=== PATIENT | female | born 1995 | race Caucasian/White ===

== ENCOUNTER 2017-12-25 20:17 | Emergency (ER) | payer BC, OTHER ==
[~2017-12-25] VITALS: Ht 165.1 cm; Wt 68.2 kg
[2017-12-25 20:31] VITALS: Ht 165.1 cm; Wt 68.2 kg
[2017-12-25] MEDS ORDERED: SODIUM CHLORIDE 0.9% 1000ML 1,000 ML IV STA (21:17)
[2017-12-25] MEDS ORDERED: OPTIRAY 320 IV PRN (21:30)
[2017-12-25 21:49] LABS: BASO % 0.2 %; BASO ABS # 0.02 K/uL (0-0.2); EOS % 0.5 %; EOS ABS # 0.04 K/uL (0-0.5); HEMATOCRIT 35.3 % (37-47); HEMOGLOBIN 11.7 g/dL (12.0-16.0); IG# 0.01 K/uL (0.00-0.02); LYMPH % 19.4 %; LYMPH ABS # 1.65 K/uL (1.2-3.4); MEAN CELL VOLUME 75.9 fL (80-100); MEAN CORPUSCULAR HEMOGLOBIN 25.2 pg (25-34); MEAN CORPUSCULAR HGB CONC 33.1 g/dl (32-36); MEAN PLATELET VOLUME 9.2 fL (7.4-10.4); MONO % 6.9 %; MONO ABS # 0.59 K/uL (0.11-0.59); NEUT % 72.9 %; PLATELET COUNT 415 K/uL (130-400); RED CELL DISTRIBUTION WIDTH CV 16.2 % (11.5-14.5); WHITE BLOOD COUNT 8.51 K/uL (4.8-10.8)
[2017-12-25 22:18] LABS: ALBUMIN 4.3 gm/dl (3.4-5.0); ALT/SGPT 15 U/L (12-78); BLOOD UREA NITROGEN 6 mg/dl (7-18); CALCIUM 9.2 mg/dl (8.5-10.1); CARBON DIOXIDE 22 mmol/L (21-32); CREATININE 0.79 mg/dl (0.60-1.20); GLUCOSE 82 mg/dl (70-99); LIPASE 93 U/L (73-393); POTASSIUM 3.3 mmol/L (3.5-5.1); SODIUM 136 mmol/L (136-145)
[2017-12-25 22:21] LABS: ALKALINE PHOSPHATASE 50 U/L (45-117); AST/SGOT 11 U/L (15-37); TOTAL PROTEIN 8.2 gm/dl (6.4-8.2)
--- NOTE | 2017-12-25 22:41 | DIAGNOSTIC IMAGING REPORT ---
APPENDICEAL ULTRASOUND CLINICAL HISTORY: Right lower quadrant abdominal pain COMPARISON STUDY: No previous studies for comparison. FINDINGS: Ultrasonographic evaluation the right lower quadrant was performed. The appendix was not visualized. There are no abnormal fluid collections. IMPRESSION: Nonvisualization the appendix. The study is therefore nondiagnostic in regards to acute appendicitis. Electronically signed by: Dinh Jose M.D. 12/25/2017 10:39 PM Dictated Date/Time: 12/25/2017 10:39 PM
--- NOTE | 2017-12-25 22:44 | DIAGNOSTIC IMAGING REPORT ---
EXAMINATION: PELVIC ULTRASOUND (transabdominal only) CLINICAL HISTORY: RLQ pain, r/o ovarian torsion COMPARISON STUDY: FINDINGS: The uterus measured 72 x 31 x 46 mm. The endometrial stripe measured 10 mm.. The right ovary measured 35 x 25 x 25 mm. The left ovary measured 41 x 25 x 32 mm. There is an 18 mm follicle.. There is no ultrasonographic evidence of ovarian torsion. It should be noted that ovarian torsion can be present with normal Doppler ultrasonographic findings. There was no evidence of pathologic free pelvic fluid. The patient refused endovaginal scanning. IMPRESSION: Unremarkable transabdominal pelvic ultrasound Electronically signed by: Dinh Jose M.D. 12/25/2017 10:42 PM Dictated Date/Time: 12/25/2017 10:40 PM
--- NOTE | 2017-12-25 23:17 | EMERGENCY ROOM VISIT NOTE ---
ED Visit Note First contact with patient: 21:06 CHIEF COMPLAINT: Right lower quadrant abdominal pain HISTORY OF PRESENTING ILLNESS: This is a 22-year-old female who presents to the emergency department with complaint of right lower quadrant abdominal pain that started yesterday. Patient was seen at an urgent care earlier today, and was sent to the ED for further evaluation and concern for possible appendicitis. The patient states for the past 2-3 days she has been having some dysuria and urinary frequency, she thought she might have a UTI and started taking some over -the-counter cranberry tablets and Azo. She states that her abdominal pain started yesterday afternoon, and has gotten progressively worse, has been intermittent, but started to get significantly worse around 3 PM today and has been constant since that time, worse with certain movements, better with rest, currently rates as 6/10. She has not tried any medications for the pain. She states that she just finished her period 2 days ago, she denies chance of . She denies history of ovarian cysts. She has had some chills, but denies fevers, nausea, vomiting, diarrhea or constipation, blood in the stool, abnormal vaginal bleeding or discharge. She has had a normal appetite. She denies any other symptoms of chest pain, shortness of breath, back pain, dizziness or syncope, or rash. She denies any previous abdominal surgeries. REVIEW OF SYSTEMS: A complete 10 point review of systems was reviewed with the patient with pertinent positives and negatives as per history of present illness. All else were negative. PAST MEDICAL HISTORY: No significant past medical or surgical history. She is up-to-date on immunizations. FAMILY HISTORY: Mother and sister with history of ovarian cysts SOCIAL HISTORY: Lives at home. Denies tobacco, alcohol, recreational drug use. ALLERGIES: No known allergies. PHYSICAL EXAM: CONSTITUTIONAL: Pleasant and cooperative. No acute distress. Well-hydrated, well appearing and well nourished. HEENT: Normocephalic, atraumatic. Pupils equal, round and reactive to light, EOMI. TMs normal. Pharynx normal. Moist mucous membranes. NECK: Supple, full active range of motion without discomfort. RESPIRATORY: Clear to auscultation bilaterally with no wheezing, crackles, rhonchi or stridor. Equal expansion bilaterally. CARDIOVASCULAR: Regular rate and rhythm with no murmurs, rubs or gallops. Normal peripheral perfusion. No edema. GASTROINTESTINAL: Soft, tender in the right lower quadrant and suprapubic abdomen to palpation, nondistended. Positive McBurney's point tenderness. Negative Rovsing, negative psoas. No rebound tenderness. No guarding. No palpable masses or HSM. Bowel sounds present in all quadrants. No CVA tenderness. GENITOURINARY: Pelvic exam deferred per patient wishes. MUSCULOSKELETAL: Full range of motion of all joints without discomfort. INTEGUMENTARY: No rash or other significant dermatologic conditions noted. NEUROLOGIC: Alert and oriented X 4 with normal affect. Normal strength and sensation all 4 extremities. No focal neurologic deficits noted. Normal speech. Normal gait observed. ED COURSE AND MEDICAL DECISION MAKING: CC: Patient presenting with complaint of right lower quadrant pain DIFFERENTIAL DIAGNOSIS: Includes, but not limited to Appendicitis, mesenteric adenitis, cholecystitis, cholelithiasis, pancreatitis, UTI, pyelonephritis, gastroenteritis, ectopic , ovarian torsion, ovarian cyst, among others. INTERPRETATION OF LABS: No leukocytosis, mild anemia, no significant electrolyte abnormalities, normal renal function, normal liver enzymes and lipase. UA suspicious for infection, culture pending. Urine negative. IMAGING: EXAMINATION: PELVIC ULTRASOUND (transabdominal only) CLINICAL HISTORY: RLQ pain, r/o ovarian torsion COMPARISON STUDY: FINDINGS: The uterus measured 72 x 31 x 46 mm. The endometrial stripe measured 10 mm.. The right ovary measured 35 x 25 x 25 mm. The left ovary measured 41 x 25 x 32 mm. There is an 18 mm follicle.. There is no ultrasonographic evidence of ovarian torsion. It should be noted that ovarian torsion can be present with normal Doppler ultrasonographic findings. There was no evidence of pathologic free pelvic fluid. The patient refused endovaginal scanning. IMPRESSION: Unremarkable transabdominal pelvic ultrasound ----- APPENDICEAL ULTRASOUND CLINICAL HISTORY: Right lower quadrant abdominal pain COMPARISON STUDY: No previous studies for comparison. FINDINGS: Ultrasonographic evaluation the right lower quadrant was performed. The appendix was not visualized. There are no abnormal fluid collections. IMPRESSION: Nonvisualization the appendix. The study is therefore nondiagnostic in regards to acute appendicitis. ----- Stat read exam requisition with read of preliminary findings for CT of the abdomen and pelvis with IV contrast as follows: Appendix not identified. Mild enhancement of the right urothelium and mild thickening of the bladder. Consider inflammatory process/infection in the proper clinical setting. No obstructing ureteral stone. MEDICATION RECONCILIATION: I attest that I have personally reviewed the patient 's current medication list. INITIAL VITAL SIGNS REVIEW: I reviewed the patient's initial vital signs and interpret them as follows: T: Afebrile; BP: Hypertensive; HR: Tachycardic; RR : Within normal limits; Pulse Ox: Within normal limits on room air. Blood pressure screening: The patient was found to have an elevated blood pressure, which was felt to be situational. SUMMARY: Patient was evaluated at bedside, history and physical exam performed. Patient is alert and oriented, no acute distress, resting, and stretcher. Patient does have moderate tenderness in the right lower quadrant and suprapubic abdomen, positive McBurney's, but no rebound tenderness, negative psoas and Rovsing. I discussed risks and benefits of performing CT imaging with the patient and her mother, given some concern for appendicitis, they did agree to have CT imaging done. Orders were placed at bedside for labs, UA and urine , IV fluids for hydration, abdominal and pelvic ultrasound to evaluate for ovarian pathology and appendicitis, as well as CT abdomen/pelvis to evaluate for appendicitis. Patient was offered something for pain, as she states that she is comfortable and does not wish to have any narcotics. Patient discussed with Dr. Dobson, who agrees with my assessment and plan. Labs and imaging reviewed as above, no evidence for acute appendicitis or ovarian torsion/cyst. CT findings and UA consistent with acute cystitis. Given the patient's recent symptoms of dysuria and urinary frequency, I believe a UTI is the most likely cause for her abdominal pain. IV Rocephin was ordered to treat UTI, Rx for Keflex sent to pharmacy. Patient was given Motrin for pain. Patient reassessed multiple times throughout ED stay, she reports that she is feeling much better. Tachycardia is downtrending appropriately after IV fluids. Patient was updated on all results and plan for discharge, she was encouraged to follow closely with her primary care provider. Patient was also given strict return precautions should her symptoms worsen, she verbalized understanding. Patient was discharged home in stable condition and ambulatory. Current/Historical Medications Scheduled Cephalexin Monohydrate (Keflex), 500 MG PO BID Phenazopyridine HCl (Pyridium), 200 MG PO TID Allergies Coded Allergies: No Known Allergies (Verified , 12/25/17) Vital Signs Date Time Temp Pulse Resp B/P (MAP) Pulse Ox O2 Delivery O2 Flow Rate FiO2 12/26/17 00:15 37.0 88 16 131/92 100 12/25/17 22:37 96 18 148/97 100 Room Air 12/25/17 20:31 37.0 125 18 164/96 99 Room Air Laboratory Results 12/25/17 21:35 Red Blood Count 4.65, Mean Corpuscular Volume 75.9, Mean Corpuscular Hemoglobin 25.2, Mean Corpuscular Hemoglobin Concent 33.1, Mean Platelet Volume 9.2, Neutrophils (%) (Auto) 72.9, Lymphocytes (%) (Auto) 19.4, Monocytes (%) (Auto) 6.9, Eosinophils (%) (Auto) 0.5, Basophils (%) (Auto) 0.2, Neutrophils # (Auto) 6.20, Lymphocytes # (Auto) 1.65, Monocytes # (Auto) 0.59, Eosinophils # (Auto) 0.04, Basophils # (Auto) 0.02 12/25/17 21:35 Test 12/25/17 21:35 White Blood Count 8.51 K/uL (4.8-10.8) Red Blood Count 4.65 M/uL (4.2-5.4) Hemoglobin 11.7 g/dL (12.0-16.0) Hematocrit 35.3 % (37-47) Mean Corpuscular Volume 75.9 fL (80-100) Mean Corpuscular Hemoglobin 25.2 pg (25-34) Mean Corpuscular Hemoglobin Concent 33.1 g/dl (32-36) Platelet Count 415 K/uL (130-400) Mean Platelet Volume 9.2 fL (7.4-10.4) Neutrophils (%) (Auto) 72.9 % Lymphocytes (%) (Auto) 19.4 % Monocytes (%) (Auto) 6.9 % Eosinophils (%) (Auto) 0.5 % Basophils (%) (Auto) 0.2 % Neutrophils # (Auto) 6.20 K/uL (1.4-6.5) Lymphocytes # (Auto) 1.65 K/uL (1.2-3.4) Monocytes # (Auto) 0.59 K/uL (0.11-0.59) Eosinophils # (Auto) 0.04 K/uL (0-0.5) Basophils # (Auto) 0.02 K/uL (0-0.2) RDW Standard Deviation 45.0 fL (36.4-46.3) RDW Coefficient of Variation 16.2 % (11.5-14.5) Immature Granulocyte % (Auto) 0.1 % Immature Granulocyte # (Auto) 0.01 K/uL (0.00-0.02) Urine Color YELLOW Urine Appearance CLOUDY (CLEAR) Urine pH 5.0 (4.5-7.5) Urine Specific [place] 1.010 (1.000-1.030) Urine Protein 1+ (NEG) Urine Glucose (UA) NEG (NEG) Urine Ketones TRACE (NEG) Urine Occult Blood 2+ (NEG) Urine Nitrite NEG (NEG) Urine Bilirubin NEG (NEG) Urine Urobilinogen NEG (NEG) Urine Leukocyte Esterase LARGE (NEG) Urine WBC (Auto) >30 /hpf (0-5) Urine RBC (Auto) 0-4 /hpf (0-4) Urine Hyaline Casts (Auto) 1-5 /lpf (0-5) Urine Epithelial Cells (Auto) >30 /lpf (0-5) Urine Bacteria (Auto) 1+ (NEG) Urine Test NEG (NEG) Anion Gap 10.0 mmol/L (3-11) Est Creatinine Clear Calc Drug Dose 100.5 ml/min Estimated GFR () 123.2 Estimated GFR (Non- 106.3 BUN/Creatinine Ratio 8.1 (10-20) Calcium Level 9.2 mg/dl (8.5-10.1) Total Bilirubin 0.3 mg/dl (0.2-1) Direct Bilirubin < 0.1 mg/dl (0-0.2) Aspartate Amino Transf (AST/SGOT) 11 U/L (15-37) Alanine Aminotransferase (ALT/SGPT) 15 U/L (12-78) Alkaline Phosphatase 50 U/L (45-117) Total Protein 8.2 gm/dl (6.4-8.2) Albumin 4.3 gm/dl (3.4-5.0) Lipase 93 U/L (73-393) Medications Administered Medications (Trade) Dose Ordered Sig/Kenzie Route Start Time Stop Time Status Last Admin Dose Admin Sodium Chloride 1,000 ml @ 999 mls/hr Q1H1M STAT IV 12/25/17 21:17 12/25/17 22:17 DC 12/25/17 21:46 999 MLS/HR Ceftriaxone Sodium (Rocephin Inj) 1 gm NOW STAT IV 12/25/17 23:20 12/25/17 23:21 DC 12/25/17 23:43 1 GM Ibuprofen (Motrin Tab) 600 mg NOW STAT PO 12/25/17 23:37 12/25/17 23:38 DC 12/25/17 23:43 600 MG Departure Information Impression Primary Impression: UTI (urinary tract infection) Dispostion Home / Self-Care Condition GOOD Prescriptions Phenazopyridine HCl (Pyridium) 200 Mg Tab 200 MG PO TID for 3 Days, #9 TAB Prov: Zayda Pace CRNP 12/25/17 Cephalexin Monohydrate (Keflex) 500 Mg Cap 500 MG PO BID for 7 Days, #14 CAP Prov: Zayda Pace CRNP 12/25/17 Referrals No Doctor, Assigned (PCP) Patient Instructions ED UTI Cystitis Female, [facility] Additional Instructions You have been treated in the Emergency Department your abdominal pain. Laboratory results and imaging studies have ruled out any emergent causes for your symptoms which would warrant admission or surgery. You are being treated for a Urinary Tract Infection (UTI). You have been prescribed Keflex to be taken twice a day for 7 days. This is an antibiotic. All antibiotics have the potential to cause diarrhea. Stop this medication and contact a medical provider if you were to develop any significant adverse side effects including: wheezing, shortness of breath, passing out, vomiting, or a diffuse rash. Always take antibiotics as directed and COMPLETE the ENTIRE course regardless of the improvement of your symptoms. You have been prescribed Pyridium to be taken as prescribed. This medicine will help with the urinary symptoms that you have been experiencing. Be aware that Pyridium may turn your urine a red-orange or brown color. This effect is harmless. For pain control, you can use the following [id number] medicines (if >12 yo): - Regular strength (325mg/tab) Tylenol (acetaminophen) 2 tabs every 4-6 hours as needed. Do not exceed 10 tablets in a 24 hour period. Avoid taking more than 3000 mg of Tylenol per day. This includes any other sources of acetaminophen you may take on a regular basis. - Regular strength (200 mg/tab) Advil (ibuprofen) 3 tabs every 6-8 6 hours as needed. Do not exceed a dose of 2400 mg per day. Drink plenty of fluids to stay well hydrated. Please follow-up with your Primary Care Provider in the next week to have your urine rechecked, or sooner if your symptoms are not improving. Return to the emergency department for severe worsening abdominal, low back pain , severe nausea/vomiting, vomiting blood, large amount of blood in your urine, fevers > 101.5, severe dizziness or passing out, or any other concerns. Work Instructions Return To Work: 2 days School Instructions Return To School: 2 days Problem Qualifiers Primary Impression: UTI (urinary tract infection) Urinary tract infection type: acute cystitis Hematuria presence: with hematuria Qualified Codes: N30.01 - Acute cystitis with hematuria
[2017-12-25] MEDS ORDERED: CEFTRIAXONE SOD INJ 1 GM ADDVIAL IV STA (23:20)
[2017-12-25] MEDS ORDERED: IBUPROFEN 600 MG TAB PO STA (23:37)
[2017-12-25] MEDS ORDERED: CEPH500C PO (23:39)
[2017-12-25] MEDS ORDERED: PHEN-876 PO (23:41)
[2017-12-26 00:15] VITALS: BP 131/92; PULSE 88; TEMP 37; O2SAT 100
--- NOTE | 2017-12-26 07:39 | DIAGNOSTIC IMAGING REPORT ---
ABD/PELVIS IV CONTRAST ONLY CLINICAL HISTORY: 22 years-old Female presenting with RLQ pain, eval appendicitis. TECHNIQUE: Multidetector CT of the abdomen and pelvis was performed after the administration of intravenous contrast. IV contrast: 92 mL of Optiray 320. A dose lowering technique was used consistent with the principles of ALARA (as low as reasonably achievable). COMPARISON: Ultrasound from 12/25/2017. CT DOSE (mGy.cm): The estimated cumulative dose is 314.64 mGy.cm. FINDINGS: [employer] topogram: Unremarkable. Lung bases: Lungs and pleural spaces clear. Normal heart size. No pericardial or pleural effusion. Liver: Normal morphology. No liver lesion. Patent hepatic vasculature. Biliary: No intrahepatic or extrahepatic biliary ductal dilatation. Normal gallbladder. Pancreas: Normal. Spleen: Normal. Adrenal glands: Normal. Kidneys and ureters: Normal renal enhancement. No hydronephrosis. No nephrolithiasis. Urothelial thickening evident on the right with urothelial hyperenhancement and trace periureteral fat stranding. The distal ureters are poorly visualized. The left ureter is normal. Bladder: Allowing for underdistention, mild circumferential bladder wall thickening and mucosal hyperenhancement. Pelvic organs: Uterus and ovaries normal. Bowel: Normal appendix. No bowel obstruction. Peritoneal cavity: No free fluid or intraperitoneal gas. Lymph nodes: No enlarged lymph nodes in the abdomen or pelvis. Vasculature: Aorta and IVC patent and normal in caliber. Abdominal wall: Normal. Musculoskeletal: Normal. IMPRESSION: 1. No appendicitis. Normal appendix. 2. Right urothelial hyperenhancement, urothelial thickening, trace periureteral fat stranding accompanied by circumferential bladder wall thickening and bladder mucosal hyperenhancement. These findings suggest infectious cystitis with upper tract involvement. No CT evidence of pyelonephritis. The report will be called/faxed according to standard departmental protocol. Electronically signed by: Phuc Haywood M.D. 12/26/2017 7:37 AM Dictated Date/Time: 12/26/2017 6:55 AM
--- NOTE | 2017-12-26 08:16 | EMERGENCY ROOM VISIT NOTE ---
ED Visit Note Received an over read by radiology on the CT which showed pyelonephritis. Upon review of the chart patient has no vomiting or fevers. The ultrasound does show ureteral involvement of the infection. Based on the time of discharge it does appear that the provider would had to have assumed that it was involving not only the bladder but the ureter. This is likely pyelonephritis but with the patient tolerating p.o. will have charge nurse call the patient back and discuss how the patient is feeling. If still tolerating p.o. we will switch antibiotics to Bactrim double strength twice daily for 10 days. If anything is worsened or changed will require patient come back to the ER. Information given to Christopher.
--- NOTE | 2017-12-27 13:24 | Pharmacy Progress Note ---
ED Pharmacist Culture FollowUp Date of Service: Dec 27, 2017. Patient was originally sent home with a prescription for keflex, but after physician reviewed CT revealing likely pyelonephritis, the charge nurse called in a prescription for bactrim 1 DS tab BID X 10 days, which should cover the E. Coli growing from the patient's urine culture.
== END 2017-12-26 00:05 | disposition home or self-care (01) ==
LOC: C.EDB 20:19 → C.EDC 12-26 00:05
DX: N39.0 Urinary tract infection, site not specified (principal)